=== PATIENT | male | born 2000 | race Two or more races ===

== ENCOUNTER 2020-02-27 19:36 | Emergency (ER) | payer MEDICAID, SELFPAY ==
[2020-02-27 19:40] VITALS: BP 130/69; PULSE 108; RESP 20; TEMP 36.8; O2SAT 95; BMI 22.2
--- NOTE | 2020-02-27 20:57 | ED_ITS ---
HPI - URI/Sore Throat General Chief Complaint: Upper Respiratory Symptoms Stated Complaint: cough,throat pain Time Seen by Provider: 02/27/20 20:27 Source: patient Mode of arrival: ambulatory Limitations: no limitations History of Present Illness HPI Narrative: 20-year-old male here with cough, runny nose since waking this morning. He tells me he lives with his girlfriend who is and he wants to get tested for COVID-19. He denies any fevers, chills, body aches. No shortness of breath. MD elicited complaint: cough and rhinorrhea Onset (ago): day(s) (1 day ) Consistency: constant Severity: mild Exacerbating factors: nothing Relieving factors: nothing Associated symptoms: denies other symptoms Related Data Previous Rx's Medication Instructions Recorded albuterol sulfate [ProAir HFA] 2 puff INHALATION Q4-6H PRN #6.7 g 02/27/20 Allergies Allergy/AdvReac Type Severity Reaction Status Date / Time No Known Allergies Allergy Verified 02/27/20 20:20 Review of Systems Constitutional: Constitutional: Reports no additional constitutional complaints, Denies body ache(s), Denies chills, Denies fever(s), Denies h eadache(s) and Denies weakness Eyes: Eyes: Denies no additional eye complaints ENT: Reports system reviewed and no additional complaints, except as documented, Denies dizziness, Denies headache(s), Reports nasal discharge and Denies sore throat Cardiovascular: Cardiovascular: Reports no additional cardiovascular complaints, Denies chest pain, Denies leg edema and Denies dyspnea Respiratory: Respiratory: Reports no additional respiratory complaints, Reports cough and Denies dyspnea Gastrointestinal: Gastrointestinal: Reports no additional gastrointestinal complaints, Denies abdominal pain, Denies diarrhea, Denies nausea and Denies vomiting Genitourinary: Genitourinary: Reports no additional male genitourinary complaints, Denies urinary frequency and Denies urinary urgency Musculoskeletal: Musculoskeletal: Reports no additional musculoskeletal complaints, Denies arthralgias, Denies joint swelling and Denies numbness Integumentary/Breasts: Skin/Breast: Reports system reviewed and no additional complaints, except as docu, Denies photosensitivity and Denies rash Neurologic: Reports system reviewed and no additional complaints, except as documented, Denies Abnormal speech present, Denies dizziness, Denies headache(s), Denies numbness and Denies weakness PMFSH Past Medical History Attestation statement: The following information was validated with the patient. Source: obtained from family and nursing notes reviewed Medical History No known health problems Social History Social History Smoking Status: Never smoker Use of substances other than those prescribed or required for medical reasons: No Advance Directives: No Advance Directives Information Provided: Yes Physical Exam Vital Signs: Vital Signs: Vital Signs Temp Pulse Resp BP Pulse Ox 02/27/20 19:40 98.2 F 108 H 20 130/69 95 Body Mass Index 22.2 Const: General: cooperative, healthy appearing, comfortable and no acute distress Orientation/consciousness: patient oriented x3 Limitations: no limitations HENMT: Head: Yes normal to inspection Ears: hearing grossly normal bilaterally General nose exam: Normal external nose present Face and sinus: Yes normal facial exam Mouth: Normal oral and palatal mucosa present Throat: Yes posterior oropharynx normal Eyes: General: appearance normal, both eyes and all related structures Pupils: Equal, round and reactive pupils present Neck: Neck: Yes normal visual inspection Chest: Chest palpation & inspection: normal inspection of the chest Resp: Effort & Inspection: normal respiratory effort Auscultation: clear to auscultation bilaterally Cardio: Rate: regular rate Rhythm: regular rhythm Peripheral pulses: Peripheral pulses 2+ throughout GI: Inspection: Yes normal to inspection Palpation (GI): Soft to palpation and nontender Auscultation: normal bowel sounds Back/Spine/Pelvis: Thoracic/Lumbar Spine: thoracic and lumbar spine normal to inspection Skin: General skin exam: no rashes or lesions noted Neuro: General: patient oriented x3, no focal motor deficits and normal sensation to monofilament Cranial nerves: Yes Equal, round and reactive pupils present Cognition (Neuro): normal cognition Speech: No Abnormal speech present Gait exam (Neuro): Normal gait present Motor exam (neuro): 5/5 motor strength present throughout Extrem: General: Yes normal to inspection Course Course Course Narrative: Likely viral syndrome. Patient well appearing, stable vital signs. Requesting COVID testing. This was sent. Reviewed worrisome signs and symptoms when to return to the emergency department. Comfortable with discharge home. Discharge Plan Discharge Clinical Impression: Acute viral syndrome Patient Disposition: Home, Self-Care Instructions: Viral Syndrome (ED) Additional Instructions: We have tested you today for covid 19. we will call you in 1-2 days with result. If positive quarentine for 14 days Prescriptions: New albuterol sulfate [ProAir HFA] 90 mcg/actuation HFA aerosol inhaler 2 puff inhalation Q4-6H PRN (Reason: shortness of breath or wheezing) Qty: 6.7 RF: 0 Interventions: ED Discharge Assessment Last Done: 02/27/20 20:49 Discharge Date/Time: 02/27/20 20:50
== END 2020-02-27 20:50 | disposition home or self-care (01) ==
PROVIDERS: Nurse Practitioner Family; Emergency Provider Emergency Medicine
DX: B34.9 Viral infection, unspecified (principal); Z20.828 Contact with and (suspected) exposure to other viral communicable diseases
CPT/HCPCS: 87635; 99283

== ENCOUNTER 2020-04-30 10:40 | Emergency (ER) | payer MEDICAID, SELFPAY ==
[2020-04-30 11:04] VITALS: BP 106/67; PULSE 71; RESP 17; TEMP 36.6; O2SAT 99; BMI 21.6
--- NOTE | 2020-04-30 11:34 | ED_ITS ---
HPI - Allergic Reaction General Chief complaint: Allergic Reaction Stated complaint: rash Time Seen by Provider: 04/30/20 11:26 Source: patient Mode of arrival: ambulatory History of Present Illness HPI narrative: 20-year-old male no significant past medical history presenting to the ED complaining of intermittent diffuse body rash x1 week, believed to be secondary to new washing detergent. Reports after scratching body area becomes red and pruritic. Denies other new exposures, new medications, recent travel, tick/insect bites, SOB, oral swelling, others with similar symptoms MD complaint: allergic reaction Onset (ago): day(s) Related Data Previous Rx's Medication Instructions Recorded albuterol sulfate [ProAir HFA] 2 puff INHALATION Q4-6H PRN #6.7 g 02/27/20 cetirizine [Zyrtec] 10 mg PO DAILY #14 cap 04/30/20 diphenhydramine HCl [Benadryl] 25 mg PO Q6H PRN #10 cap 04/30/20 famotidine [Pepcid] 20 mg PO DAILY PRN #10 tab 04/30/20 Allergies Allergy/AdvReac Type Severity Reaction Status Date / Time No Known Allergies Allergy Verified 02/27/20 20:20 Review of Systems Review of Systems: Constitutional: No Weight loss, No Fever, No Chills ENT/Mouth: No Ear Pain, No Nasal Congestion, No Hoarseness, No sore throat, No Rhinorrhea, No Swallowing Difficulty Cardiovascular: No Chest Pain, No SOB Respiratory: No Cough, No Wheezing Skin: No Skin Lesions, +6 rash PMFSH Past Medical History Attestation statement: The following information was validated with the patient. Medical History No known health problems Social History Social History (Reviewed 02/27/20 @ 21: by Ev Quezada NP) Smoking Status: Never smoker Advance Directives: No Advance Directives Information Provided: No Physical Exam Vital Signs: Vital Signs: Last Vital Signs Temp 98 F 04/30/20 11:04 Pulse 71 04/30/20 11:04 Resp 17 04/30/20 11:04 BP 106/67 04/30/20 11:04 Pulse Ox 99 04/30/20 11:04 Body Mass Index 21.6 Const: General: cooperative and healthy appearing Orientation/consciousness: patient oriented x3 Limitations: no limitations HENMT: Other: No mucous membrane involvement Head: Yes normal to inspection Ears: hearing grossly normal bilaterally General nose exam: Normal external nose present Face and sinus: Yes normal facial exam Mouth: Normal oral and palatal mucosa present, no drooling and no muffled voice Throat: Yes posterior oropharynx normal and Yes uvula midline Eyes: General: appearance normal, both eyes and all related structures EOM: EOMs intact bilaterally Neck: Neck: Yes normal visual inspection Resp: Effort & Inspection: normal respiratory effort, no stridor and not tachypneic Cardio: Rate: regular rate GI: Inspection: Yes normal to inspection Skin: Other: Small area of erythema noted to left forearm. No hives. No cellulitis/streaking or pustules. No palm/sole involvement Wounds: no wounds Neuro: General: patient oriented x3 Gait exam (Neuro): Normal gait present Extrem: General: Yes normal to inspection MDM - Allergic Reaction MDM Narrative Medical decision making narrative: Patient showed picture of hives on abdomen fr om earlier in the week. Just small area of red erythema to left forearm at this time, no other appreciable rash now. No intraoral involvement. No palm/sole involvement Discussed with patient to stop using new detergent/believed source, follow-up with bench worker apprentice, worrisome signs and symptoms and strict return precautions discussed he verbalized understanding feel safe for discharge home Discharge Plan Discharge Clinical Impression: Allergic reaction Patient Disposition: Home, Self-Care Instructions: Allergy Testing (ED) Additional Instructions: You should be taking Benadryl at night for your allergic reaction, makes you drowsy, do drive, drink alcohol, or operate machinery after taking During the day he should be taking Pepcid and Zyrtec as it is not acute drowsy Follow-up with an bench worker apprentice for allergy testing/dermatology If symptoms persist or worsen, he develops any lesions in her oral swelling, difficulty breathing return to the ED immediately Prescriptions: New diphenhydramine HCl [Benadryl] 25 mg capsule 25 mg PO Q6H PRN (Reason: allergic reaction) Qty: 10 RF: 0 Zyrtec 10 mg capsule 10 mg PO DAILY Qty: 14 RF: 0 famotidine [Pepcid] 20 mg tablet 20 mg PO DAILY PRN (Reason: allergic reaction) Qty: 10 RF: 0 No Action albuterol sulfate [ProAir HFA] 90 mcg/actuation HFA aerosol inhaler 2 puff inhalation Q4-6H PRN (Reason: shortness of breath or wheezing) Qty: 6.7 RF: 0 Referrals: Kendall Yañez DO [Physician] - 1 week [place], [facility] [Primary Care Provider] - 2 days
== END 2020-04-30 11:51 | disposition home or self-care (01) ==
PROVIDERS: Emergency Provider Emergency Medicine
DX: T55.1X1A Toxic effect of detergents, accidental (unintentional), initial encounter (principal); X58.XXXA Exposure to other specified factors, initial encounter; R21 Rash and other nonspecific skin eruption
CPT/HCPCS: 99283

== ENCOUNTER 2021-01-09 13:40 | Emergency (ER) | payer MEDICAID, SELFPAY ==
[2021-01-09 13:50] VITALS: BP 115/69; PULSE 95; RESP 16; TEMP 36.4; O2SAT 98; BMI 22.6
--- NOTE | 2021-01-09 15:58 | ED_ITS ---
HPI - General Adult General Chief complaint: Skin/Abscess/Foreign Body Stated complaint: lump on jaw Time Seen by Provider: 01/09/21 15:58 History of Present Illness HPI narrative: Patient complains of small mildly tender bumps that he noticed under the left side of his chin and the right side as well, he has had no fever no recent illness, no difficulty breathing or swallowing no other rash Related Data Previous Rx's Medication Instructions Recorded albuterol sulfate 90 mcg/actuation 2 puff INHALATION Q4-6H PRN #6.7 g 02/27/20 aerosol inhaler (ProAir HFA) cetirizine 10 mg capsule (Zyrtec) 10 mg PO DAILY #14 cap 04/30/20 diphenhydramine HCl 25 mg capsule 25 mg PO Q6H PRN #10 cap 04/30/20 (Benadryl) famotidine 20 mg tablet (Pepcid) 20 mg PO DAILY PRN #10 tab 04/30/20 amoxicillin 500 mg tablet 500 mg PO TID 7 Days #21 tab 01/09/21 Allergies Allergy/AdvReac Type Severity Reaction Status Date / Time No Known Allergies Allergy Verified 02/27/20 20:20 Review of Systems Review of Systems: Positive for small bumps under the mandible Negatives are no fever no chills no dizziness or weakness no headache no neck pain no sore throat no runny nose no cough no chest pain no shortness of breath no abdominal pain no vomiting no rash Yes all other systems are reviewed and are negative PMFSH Past Medical History Source: nursing notes reviewed Medical History No known health problems Social History Social History Advance Directives: No Advance Directives Information Provided: No Physical Exam Vital Signs: Vital Signs: Last Vital Signs Temp 97.6 F 01/09/21 13:50 Pulse 95 01/09/21 13:50 Resp 16 01/09/21 13:50 BP 115/69 01/09/21 13:50 Pulse Ox 98 01/09/21 13:50 Body Mass Index 22.6 General appearance no acute distress The ears are clear with normal tympanic membranes and canals The sinuses are not congested and nontender The pharynx is clear with no redness swelling or exudate The lungs are clear to auscultation bilateral Heart no murmur Skin no rash Course Course Course Narrative: Patient with bilateral lymphadenopathy cervical, otherwise asymptomatic but was concerned about infection and requested antibiotics so given a script for penicillin Discharge Plan Discharge Clinical Impression: Adenopathy, cervical Patient Disposition: Home, Self-Care Additional Instructions: Follow with primary doctor in 1-2 weeks if not better Return any time for any worse condition or any concerns Lymph nodes in the neck often appear in young people either from a virus or perhaps an early bacterial infection and usually go away by themselves within 2- 3 weeks Prescriptions: New amoxicillin 500 mg tablet 500 mg PO TID 7 Days Qty: 21 RF: 0 No Action albuterol sulfate [ProAir HFA] 90 mcg/actuation HFA aerosol inhaler 2 puff inhalation Q4-6H PRN (Reason: shortness of breath or wheezing) Qty: 6.7 RF: 0 diphenhydramine HCl [Benadryl] 25 mg capsule 25 mg PO Q6H PRN (Reason: allergic reaction) Qty: 10 RF: 0 Zyrtec 10 mg capsule 10 mg PO DAILY Qty: 14 RF: 0 famotidine [Pepcid] 20 mg tablet 20 mg PO DAILY PRN (Reason: allergic reaction) Qty: 10 RF: 0 Interventions: ED Discharge Assessment Last Done: 01/09/21 16:08 Discharge Date/Time: 01/09/21 16:11
== END 2021-01-09 16:11 | disposition home or self-care (01) ==
PROVIDERS: Emergency Provider Internal Medicine
DX: R59.9 Enlarged lymph nodes, unspecified (principal)
CPT/HCPCS: 99283

== ENCOUNTER 2021-08-09 13:49 | Emergency (ER) | payer MEDICAID, SELFPAY ==
--- NOTE | ~2021-08-09 | XR_ITS ---
EXAMINATION: XR CHEST CLINICAL INFORMATION: SOB COMPARISON: None TECHNIQUE: 2 views of the chest were obtained. FINDINGS: No significant abnormality is noted involving the heart, lungs, mediastinum, bony thorax or soft tissues. XR/XR chest 2V IMPRESSION: Unremarkable chest examination.
[2021-08-09 13:56] VITALS: BP 112/59; PULSE 109; RESP 18; TEMP 36.6; O2SAT 97; BMI 21.4
[2021-08-09 14:30] LABS: COVID-19 Test Negative (Negative); IDNOW Serial# 16C4AD1C
[2021-08-09 17:01] LABS: Hematocrit 41.7 % (42.0-52.0); Hemoglobin 14.3 g/dl (14.0-18.0); Mean Corpuscular HGB Conc 34.3 g/dl (31.0-36.0); Mean Corpuscular Hemoglobin 29.8 pg (27.0-33.0); Mean Corpuscular Volume 86.9 fL (80.0-98.0); Mean Platelet Volume 9.2 fL (9.4-12.4); Platelet Count 397 X10*3/uL (160-400); Red Cell Distribution Width 13.1 % (11.0-16.0); White Blood Count 13.4 X10*3/uL (4.8-10.8)
[2021-08-09 17:14] LABS: D Dimer High Sensitivity 228 NG/ML
[2021-08-09 17:15] LABS: Alanine Aminotransferase 19 U/L (0-40); Albumin Level 4.8 g/dL (3.5-5.0); Alkaline Phosphatase 84 U/L (39-117); Anion Gap 11 (12-20); Aspartate Amino Transferase 15 U/L (5-37); Bilirubin Total 0.4 mg/dL (0.0-1.0); Blood Urea Nitrogen 17 mg/dL (9-16); Calcium 9.8 mg/dL (8.4-10.2); Carbon Dioxide 23 mmol/L (22-29); Chloride 107 mmol/L (96-108); Estimated Glomerular Filt Rate > 60; Glucose Random 133 mg/dL (60-115); Potassium 4.4 mmol/L (3.3-5.1); Sodium 137 mmol/L (135-145); Total Protein 7.8 g/dL (6.5-8.0)
[2021-08-09 17:30] LABS: Atypical Lymph Absolute Manual 0.5 x10*3/uL; Atypical Lymphs Percent Manual 4 % (0-6); Band Neutrophils Percent 1 % (3-5); Large Platelet PRESENT; Lymphocytes Absolute Manual 0.3 X10*3/uL (1.2-4.9); Lymphocytes Percent Manual 2 % (20-40); Neutrophils Absolute Manual 12.6 X10*3/uL (2.0-8.3); Neutrophils Percent Manual 93 % (45-73); Platelet Estimate SLIGHTLY INCREASED (NORMAL); Platelet Morphology Comment NOTED; RBC Morphology NORMAL
--- NOTE | 2021-08-09 17:51 | ED_ITS ---
HPI - SOB/Dyspnea General Chief Complaint: Dyspnea Stated Complaint: SOB Time Seen by Provider: 08/09/21 17:12 Source: patient Mode of arrival: ambulatory Limitations: no limitations History of Present Illness HPI Narrative: 21-year-old male presenting to the ED with complaints of shortness of breath for the past 2 weeks reporting that he has never had COVID and his primary care provider recommended him to come here for further evaluation treatment for possible pulmonary embolism after he had outpatient labs done yesterday here at [facility] and apparently his PCP called him back in told him that his labs were abnormal and that he should come to the emergency department for a CT scan of his chest to rule out a pulmonary embolism. Although when I entered the patient's room he was very upset reporting that he is has been waiting since 2pm this afternoon and continues to report ?I do not trust any doctors you guys do not even care about patient's that is why have this A on my face for a tattoo because you guys do not actually care about people you make and wait hours even if there dying?. I apologized to the patient multiple times due to he waited approximately 2-3 hours in the waiting room and I explained to him that sometimes people do have to wait even when there sick because we do not have actual beds in the ER and that I had brought him in to Emergency [facility] care just to get him in sooner because there was no actual beds right now in the main ED and he was not impressed about this either way. He reported that he did not want to be here any longer that he did not want any additional labs or imaging and that he just wanted to ?fucking go home?. Therefore I told him that if he did not want to be here any longer than I cannot make him or force him to stay in the emergency department therefore he left against medical advice. Patient did not give me much information he was just very upset the entire time. MD elicited complaint: shortness of breath Onset (ago): week(s) (2) Timing: constant and progressively worsening Severity: moderate Related Data Previous Rx's Medication Instructions Recorded albuterol sulfate 90 mcg/actuation 2 puff INHALATION Q4-6H PRN #6.7 g 02/27/20 aerosol inhaler (ProAir HFA) cetirizine 10 mg capsule (Zyrtec) 10 mg PO DAILY #14 cap 04/30/20 diphenhydramine HCl 25 mg capsule 25 mg PO Q6H PRN #10 cap 04/30/20 (Benadryl) famotidine 20 mg tablet (Pepcid) 20 mg PO DAILY PRN #10 tab 04/30/20 amoxicillin 500 mg tablet 500 mg PO TID 7 Days #21 tab 01/09/21 Allergies Allergy/AdvReac Type Severity Reaction Status Date / Time No Known Allergies Allergy Verified 08/09/21 13:54 Review of Systems Review of Systems: Yes Other (Patient refused to answer any additional questions) [facility] Past Medical History Source: unable to obtain (Patient refused to answer any additional questions) Medical History No known health problems Social History Social History Advance Directives: No Advance Directives Information Provided: No Physical Exam Vital Signs: Vital Signs: Last Vital Signs Temp 97.9 F 08/09/21 13:56 Pulse 109 H 08/09/21 13:56 Resp 18 08/09/21 13:56 BP 112/59 L 08/09/21 13:56 Pulse Ox 97 08/09/21 13:56 BMI result Body Mass Index 21.4 vital signs have been reviewed as normal and appeared to be correct. Blood pressure 112/59 Heart rate 109. Respiration rate normal. Temperature normal. Oxygen saturation normal. Appearance: Alert. Oriented X3. No acute distress. Head: Normal external exam. Normocephalic. Atraumatic. Eyes: PERRLA. EOMI. Conjunctiva and sclera normal. Eyelids normal. ENT: Moist mucous membranes. Neck: Normal inspection. Neck supple. FROM. CVS: Normal heart rate and rhythm. Respiratory: No respiratory distress. Painless inspiration. Skin: Skin warm and dry. Normal skin color. Normal skin turgor. No r ashes/lesions/lacerations noted. Extremities: Extremities exhibit normal range of motion. Extremities nontender. Neuro: Oriented X 3. No motor deficit. No sensory deficit. Normal steady gait. Vascular: + radial pulses Normal cap refill. No cyanosis noted to upper extremity nails and lower extremity toes nails. Course Course Course Narrative: Patient left against medical advice he was alert and oriented x3. Not in any acute distress. Able to make his own medical decisions despite me explained to him that he should stay here for further evaluation treatment he was so upset he did not want to be here any longer I explained to him that he is always welcome back at any time and to follow-up with his primary care provider. MDM - SOB/Dyspnea Medical Records Attestation: I reviewed the patient's medical records. Lab Data Attestation: I reviewed the patient's lab results. Result diagrams: 08/09/21 16:53 08/09/21 16:53 Labs: Lab Results 08/09/21 08/09/21 08/09/21 Range/Units 13:58 16:53 16:53 WBC 13.4 H (4.8-10.8) X10*3/uL RBC 4.80 (4.60-5.80) X10*6/uL Hgb 14.3 (14.0-18.0) g/dl Hct 41.7 L (42.0-52.0) % MCV 86.9 (80.0-98.0) fL MCH 29.8 (27.0-33.0) pg MCHC 34.3 (31.0-36.0) g/dl RDW 13.1 (11.0-16.0) % Plt Count 397 (160-400) X10*3/uL MPV 9.2 L (9.4-12.4) fL Immature Gran % (Auto) Cancelled Neut % (Auto) Cancelled Lymph % (Auto) Cancelled Sebastian % (Auto) Cancelled Eos % (Auto) Cancelled Baso % (Auto) Cancelled Lymph # (Auto) Cancelled Sebastian # (Auto) Cancelled Eos # (Auto) Cancelled Baso # (Auto) Cancelled Abs Immat Gran (auto) Cancelled Absolute Neuts (auto) Cancelled Absolute Nucleated RBC 0.000 (0.0-0.012) X10*3/uL Nucleated RBC % (auto) 0.0 (0.0-0.2) /100WBC Neutrophils % (Manual) 93 H (45-73) % Band Neutrophils % 1 L (3-5) % Lymphocytes % (Manual) 2 L (20-40) % Atypical Lymphs % (Man) 4 (0-6) % Abs Neuts (Manual) 12.6 H (2.0-8.3) X10*3/uL Lymphocytes # (Manual) 0.3 L (1.2-4.9) X10*3/uL Atyp Lymphs # (Manual) 0.5 x10*3/uL Platelet Estimate SLIGHTLY INCREASED (NORMAL) Large Platelets PRESENT Plt Morphology Comment NOTED RBC Morphology NORMAL D-Dimer High Sensitivty 228 NG/ML Sodium (135-145) mmol/L Potassium (3.3-5.1) mmol/L Chloride (96-108) mmol/L Carbon Dioxide (22-29) mmol/L Anion Gap (12-20) BUN (9-16) mg/dL Creatinine (0.5-1.4) mg/dL Estim Creat Clear Calc Estimated GFR Random Glucose (60-115) mg/dL Calcium (8.4-10.2) mg/dL Total Bilirubin (0.0-1.0) mg/dL AST (5-37) U/L ALT (0-40) U/L Alkaline Phosphatase (39-117) U/L Total Protein (6.5-8.0) g/dL Albumin (3.5-5.0) g/dL COVID-19 (FIDEL) Negative (Negative) COVID-19 Clin Com See Note 08/09/21 Range/Units 16:53 WBC (4.8-10.8) X10*3/uL RBC (4.60-5.80) X10*6/uL Hgb (14.0-18.0) g/dl Hct (42.0-52.0) % MCV (80.0-98.0) fL MCH (27.0-33.0) pg MCHC (31.0-36.0) g/dl RDW (11.0-16.0) % Plt Count (160-400) X10*3/uL MPV (9.4-12.4) fL Immature Gran % (Auto) Neut % (Auto) Lymph % (Auto) Sebastian % (Auto) Eos % (Auto) Baso % (Auto) Lymph # (Auto) Sebastian # (Auto) Eos # (Auto) Baso # (Auto) Abs Immat Gran (auto) Absolute Neuts (auto) Absolute Nucleated RBC (0.0-0.012) X10*3/uL Nucleated RBC % (auto) (0.0-0.2) /100WBC Neutrophils % (Manual) (45-73) % Band Neutrophils % (3-5) % Lymphocytes % (Manual) (20-40) % Atypical Lymphs % (Man) (0-6) % Abs Neuts (Manual) (2.0-8.3) X10*3/uL Lymphocytes # (Manual) (1.2-4.9) X10*3/uL Atyp Lymphs # (Manual) x10*3/uL Platelet Estimate (NORMAL) Large Platelets Plt Morphology Comment RBC Morphology D-Dimer High Sensitivty NG/ML Sodium 137 (135-145) mmol/L Potassium 4.4 (3.3-5.1) mmol/L Chloride 107 (96-108) mmol/L Carbon Dioxide 23 (22-29) mmol/L Anion Gap 11 L (12-20) BUN 17 H (9-16) mg/dL Creatinine 0.83 (0.5-1.4) mg/dL Estim Creat Clear Calc 123.0 Estimated GFR > 60 Random Glucose 133 H (60-115) mg/dL Calcium 9.8 (8.4-10.2) mg/dL Total Bilirubin 0.4 (0.0-1.0) mg/dL AST 15 (5-37) U/L ALT 19 (0-40) U/L Alkaline Phosphatase 84 (39-117) U/L Total Protein 7.8 (6.5-8.0) g/dL Albumin 4.8 (3.5-5.0) g/dL COVID-19 (FIDEL) (Negative) COVID-19 Clin Com Imaging Data Chest x-ray: Attestation: I personally reviewed and interpreted this imaging study as follows: Radiologist's impression: FINDINGS: No significant abnormality is noted involving the heart, lungs, mediastinum, bony thorax or soft tissues. XR/XR chest 2V IMPRESSION: Unremarkable chest examination. Discharge Plan Discharge Clinical Impression: Shortness of breath, Left against medical advice Patient Disposition: Left Against Medical Advice Prescriptions: No Action albuterol sulfate [ProAir HFA] 90 mcg/actuation HFA aerosol inhaler 2 puff inhalation Q4-6H PRN (Reason: shortness of breath or wheezing) Qty: 6.7 0RF diphenhydramine HCl [Benadryl] 25 mg capsule 25 mg PO Q6H PRN (Reason: allergic reaction) Qty: 10 0RF Zyrtec 10 mg capsule 10 mg PO DAILY Qty: 14 0RF famotidine [Pepcid] 20 mg tablet 20 mg PO DAILY PRN (Reason: allergic reaction) Qty: 10 0RF amoxicillin 500 mg tablet 500 mg PO TID 7 Days Qty: 21 0RF
--- NOTE | 2021-08-09 18:17 | PC.NURSE ---
PT WAS VERY ANGRY WHEN THEY SAW THE PROVIDER STATED THEY WAITED A LONG TIME AND THEY WERE UNHAPPY AND THERE ALSO WAS OTHER PT THAT ARE STILL WAITING AND HE IS VERY ANGRY ALSO ANGRY BECAUSE HE STATES THE PHOTO SCANNED TO HIS LAB IS NOT HIM. PT LEFT AMA WITHOUT PAPER.
== END 2021-08-09 19:25 | disposition left against medical advice (07) ==
PROVIDERS: Emergency Provider Emergency Medicine Emergency Medical Services
DX: R06.02 Shortness of breath (principal); Z20.822 Contact with and (suspected) exposure to COVID-19
CPT/HCPCS: 36415; 71046; 80053; 85007; 85025; 85027; 85379; 87635; 99283

== ENCOUNTER 2021-10-05 18:36 | Emergency (ER) | payer MEDICAID, SELFPAY ==
--- NOTE | 2021-10-05 07:27 | ECG_ITS ---
Test Reason : CHEST PAIN Blood Pressure : / mmHG Vent. Rate : 091 BPM Atrial Rate : 091 BPM P-R Int : 148 ms QRS Dur : 086 ms QT Int : 326 ms P-R-T Axes : 023 059 046 degrees QTc Int : 400 ms Normal sinus rhythm Normal ECG When compared with ECG of 18-APR-2018 10:32, No significant change was found Referred By: Keenan Harding Electronically Signed By:YUN DASILVA MD
[2021-10-05 19:17] VITALS: BP 122/72; PULSE 94; RESP 18; TEMP 37.2; O2SAT 99; BMI 22.7
[2021-10-05 19:40] LABS: Basophils Absolute Auto 0.1 X10*3/uL (0.0-0.2); Eosinophils Absolute Auto 0.3 X10*3/uL (0.0-0.4); Eosinophils Percent Auto 3.1 % (0-4); Hematocrit 40.4 % (42.0-52.0); Hemoglobin 13.9 g/dl (14.0-18.0); Imm Gran Abs Auto 0.04 X10*3/uL (0.00-0.03); Imm Gran Pct Auto 0.4 % (0.0-0.4); Lymphocytes Absolute Auto 2.9 X10*3/uL (1.2-4.9); Lymphocytes Percent Auto 29.2 % (20-40); MANUAL DIFF FLAG NO; Mean Corpuscular HGB Conc 34.4 g/dl (31.0-36.0); Mean Corpuscular Hemoglobin 30.4 pg (27.0-33.0); Mean Corpuscular Volume 88.4 fL (80.0-98.0); Mean Platelet Volume 9.4 fL (9.4-12.4); Monocytes Absolute Auto 0.8 X10*3/uL (0.1-1.2); Monocytes Percent Auto 8.1 % (2-11); Neutrophils Absolute Auto 5.7 x10*3/uL (2.0-8.3); Neutrophils Percent Auto 58.2 % (45-73); Platelet Count 358 X10*3/uL (160-400); Red Blood Count 4.57 X10*6/uL (4.60-5.80); Red Cell Distribution Width 12.7 % (11.0-16.0); White Blood Count 9.8 X10*3/uL (4.8-10.8)
[2021-10-05 19:56] LABS: Alanine Aminotransferase 18 U/L (0-40); Albumin Level 4.4 g/dL (3.5-5.0); Alkaline Phosphatase 117 U/L (39-117); Anion Gap 13 (12-20); Aspartate Amino Transferase 16 U/L (5-37); Bilirubin Total 0.3 mg/dL (0.0-1.0); Blood Urea Nitrogen 13 mg/dL (9-16); Carbon Dioxide 26 mmol/L (22-29); Chloride 105 mmol/L (96-108); Creatinine Clr Calc Pharmacy 104.5; Estimated Glomerular Filt Rate > 60; Glucose Random 86 mg/dL (60-115); Sodium 140 mmol/L (135-145); Total Protein 7.4 g/dL (6.5-8.0)
[2021-10-05 20:00] LABS: Troponin-I High Sensitivity < 3.5 ng/L (<3.5-35.0)
--- NOTE | 2021-10-05 22:13 | PC.NURSE ---
Pt stated that he would rather leave the ER and deal with the pain I am going through. August RN encouraged the pt to stay, but he said he was going to leave anyway.
== END 2021-10-05 22:34 | disposition left against medical advice (07) ==
PROVIDERS: Emergency Provider Emergency Medicine
DX: R07.89 Other chest pain (principal); Z79.899 Other long term (current) drug therapy
CPT/HCPCS: 36415; 80053; 84484; 85025; 93005; 99281; 99283

== ENCOUNTER 2022-01-27 13:19 | Emergency (ER) | payer MEDICAID, SELFPAY ==
[2022-01-27 13:26] VITALS: BP 151/73; PULSE 99; RESP 18; TEMP 37.2; O2SAT 100; BMI 24.2
--- NOTE | 2022-01-27 13:29 | ECG_ITS ---
Test Reason : cp Blood Pressure : / mmHG Vent. Rate : 077 BPM Atrial Rate : 077 BPM P-R Int : 150 ms QRS Dur : 092 ms QT Int : 340 ms P-R-T Axes : 023 053 048 degrees QTc Int : 384 ms Normal sinus rhythm with sinus arrhythmia Normal ECG When compared with ECG of 05-OCT-2021 19:02, No significant change was found Referred By: Generic ED Physician Electronically Signed By:SAMEER WILD
[2022-01-27 13:55] LABS: MANUAL DIFF FLAG NO
[2022-01-27 13:56] LABS: Basophils Absolute Auto 0.1 X10*3/uL (0.0-0.2); Basophils Percent Auto 0.9 % (0-2); Eosinophils Absolute Auto 0.1 X10*3/uL (0.0-0.4); Eosinophils Percent Auto 1.6 % (0-4); Hematocrit 41.1 % (42.0-52.0); Hemoglobin 14.3 g/dl (14.0-18.0); Imm Gran Abs Auto 0.03 X10*3/uL (0.00-0.03); Imm Gran Pct Auto 0.4 % (0.0-0.4); Lymphocytes Absolute Auto 2.3 X10*3/uL (1.2-4.9); Lymphocytes Percent Auto 30.3 % (20-40); Mean Corpuscular HGB Conc 34.8 g/dl (31.0-36.0); Mean Corpuscular Volume 86.3 fL (80.0-98.0); Mean Platelet Volume 9.2 fL (9.4-12.4); Monocytes Absolute Auto 0.6 X10*3/uL (0.1-1.2); Monocytes Percent Auto 8.2 % (2-11); Neutrophils Absolute Auto 4.5 x10*3/uL (2.0-8.3); Neutrophils Percent Auto 58.6 % (45-73); Platelet Count 330 X10*3/uL (160-400); Red Blood Count 4.76 X10*6/uL (4.60-5.80); Red Cell Distribution Width 12.3 % (11.0-16.0); White Blood Count 7.7 X10*3/uL (4.8-10.8)
[2022-01-27 14:17] LABS: Alanine Aminotransferase 16 U/L (0-40); Albumin Level 4.4 g/dL (3.5-5.0); Alkaline Phosphatase 86 U/L (39-117); Anion Gap 14 (12-20); Aspartate Amino Transferase 16 U/L (5-37); Bilirubin Total 0.7 mg/dL (0.0-1.0); Blood Urea Nitrogen 19 mg/dL (9-16); Calcium 9.5 mg/dL (8.4-10.2); Carbon Dioxide 23 mmol/L (22-29); Chloride 105 mmol/L (96-108); Creatinine Clr Calc Pharmacy 106.8; Estimated Glomerular Filt Rate > 60; Glucose Random 135 mg/dL (60-115); Potassium 3.5 mmol/L (3.3-5.1); Sodium 138 mmol/L (135-145); Total Protein 7.2 g/dL (6.5-8.0)
[2022-01-27 14:20] LABS: Troponin-I High Sensitivity < 3.5 ng/L (<3.5-35.0)
--- NOTE | 2022-01-27 18:07 | PC.NURSE ---
Education provided to pt regarding triage priority and TAL. Pt educated tahat no test results would be disclosed in triage. Pt encouraged to remain in ED for provider evaluation. Pt refused repeat vs. Per pt fuck you for this. I'm gonna wait another 30 minutes and then i'll bounce.
== END 2022-01-27 19:55 | disposition left against medical advice (07) ==
PROVIDERS: Emergency Provider Emergency Medicine
DX: R07.9 Chest pain, unspecified (principal)
CPT/HCPCS: 36415; 80053; 84484; 85025; 93005; 99283

== ENCOUNTER 2022-02-19 10:17 | Emergency (ER) | payer MEDICAID, SELFPAY ==
[2022-02-19 10:56] VITALS: BP 102/63; PULSE 90; RESP 18; TEMP 36.4; O2SAT 97; BMI 22.6
[2022-02-19 11:21] LABS: MANUAL DIFF FLAG NO
[2022-02-19 11:23] LABS: Basophils Absolute Auto 0.1 X10*3/uL (0.0-0.2); Basophils Percent Auto 0.8 % (0-2); Eosinophils Absolute Auto 0.2 X10*3/uL (0.0-0.4); Eosinophils Percent Auto 2.9 % (0-4); Hematocrit 40.5 % (42.0-52.0); Imm Gran Abs Auto 0.03 X10*3/uL (0.00-0.03); Imm Gran Pct Auto 0.4 % (0.0-0.4); Lymphocytes Absolute Auto 1.4 X10*3/uL (1.2-4.9); Lymphocytes Percent Auto 17.5 % (20-40); Mean Corpuscular HGB Conc 34.6 g/dl (31.0-36.0); Mean Corpuscular Hemoglobin 30.1 pg (27.0-33.0); Mean Corpuscular Volume 87.1 fL (80.0-98.0); Mean Platelet Volume 9.4 fL (9.4-12.4); Monocytes Absolute Auto 0.7 X10*3/uL (0.1-1.2); Monocytes Percent Auto 8.4 % (2-11); Neutrophils Absolute Auto 5.5 x10*3/uL (2.0-8.3); Platelet Count 299 X10*3/uL (160-400); Red Blood Count 4.65 X10*6/uL (4.60-5.80); Red Cell Distribution Width 12.5 % (11.0-16.0); White Blood Count 7.8 X10*3/uL (4.8-10.8)
[2022-02-19 11:44] LABS: Alanine Aminotransferase 16 U/L (0-40); Albumin Level 4.5 g/dL (3.5-5.0); Alkaline Phosphatase 87 U/L (39-117); Anion Gap 14 (12-20); Aspartate Amino Transferase 17 U/L (5-37); Bilirubin Direct 0.2 mg/dL (0.0-0.5); Bilirubin Total 0.6 mg/dL (0.0-1.0); Blood Urea Nitrogen 11 mg/dL (9-16); Calcium 9.4 mg/dL (8.4-10.2); Carbon Dioxide 23 mmol/L (22-29); Chloride 106 mmol/L (96-108); Creatinine Clr Calc Pharmacy 128.9; Estimated Glomerular Filt Rate > 60; Glucose Random 85 mg/dL (60-115); Sodium 139 mmol/L (135-145); Total Protein 7.2 g/dL (6.5-8.0)
== END 2022-02-19 12:27 | disposition left against medical advice (07) ==
PROVIDERS: Emergency Provider Emergency Medicine
DX: R10.13 Epigastric pain (principal); R07.89 Other chest pain; Z79.899 Other long term (current) drug therapy
CPT/HCPCS: 36415; 80048; 80076; 85025; 99281; 99283

== ENCOUNTER 2022-02-19 22:32 | Emergency (ER) | payer MEDICAID, SELFPAY ==
[2022-02-19 23:13] VITALS: BP 152/78; PULSE 109; RESP 18; TEMP 36.6; O2SAT 95; BMI 22.6
== END 2022-02-20 01:22 | disposition left against medical advice (07) ==
PROVIDERS: Emergency Provider Emergency Medicine
DX: R10.9 Unspecified abdominal pain (principal); R51.9 Headache, unspecified
CPT/HCPCS: 99281

== ENCOUNTER 2022-02-20 10:48 | Emergency (ER) | payer MEDICAID, SELFPAY ==
--- NOTE | ~2022-02-20 | XR_ITS ---
EXAMINATION: XR CHEST CLINICAL INFORMATION: Chest pain COMPARISON: Previous chest x-ray August 2021 TECHNIQUE: 2 views of the chest were obtained. FINDINGS: No significant abnormality is noted involving the heart, lungs, mediastinum, bony thorax or soft tissues. XR/XR chest 2V IMPRESSION: Unremarkable examination.
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
--- NOTE | ~2022-02-20 | XR_ITS ---
EXAMINATION: XR LUMBOSACRAL SPINE CLINICAL INFORMATION: Low back pain COMPARISON: None TECHNIQUE: Three views of the lumbosacral spine. FINDINGS: The vertebral bodies and posterior elements are normal. The disc spaces are preserved and the vertebral alignment is normal. The paraspinal soft tissues are normal. XR/XR lumbar spine 2-3V IMPRESSION: Unremarkable examination.
[2022-02-20 11:02] VITALS: BP 113/89; PULSE 112; RESP 18; TEMP 37.2; O2SAT 97; BMI 23.3
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
== END 2022-02-20 14:39 | disposition home or self-care (01) ==
PROVIDERS: Emergency Provider Student in an Organized Health Care Education/Training Program
DX: S06.0X0A Concussion without loss of consciousness, initial encounter (principal); S39.012A Strain of muscle, fascia and tendon of lower back, initial encounter; Y04.2XXA Assault by strike against or bumped into by another person, initial encounter; R07.81 Pleurodynia; L73.9 Follicular disorder, unspecified; Y93.89 Activity, other specified; Y92.9 Unspecified place or not applicable; Y99.9 Unspecified external cause status
CPT/HCPCS: 70450; 71046; 72100; 99283; 99284

== ENCOUNTER 2022-03-03 10:52 | Emergency (ER) | payer MEDICAID, SELFPAY ==
[2022-03-03 11:56] VITALS: BP 131/87; PULSE 96; RESP 16; TEMP 36.6; O2SAT 99; BMI 23.3
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
[2022-03-03 14:11] LABS: CT PCR NOT DETECTED (Not Detect.); NG PCR NOT DETECTED (Not Detect.)
== END 2022-03-03 12:33 | disposition home or self-care (01) ==
PROVIDERS: Emergency Provider Emergency Medicine
DX: R51.9 Headache, unspecified (principal); Z20.2 Contact with and (suspected) exposure to infections with a predominantly sexual mode of transmission
CPT/HCPCS: 87491; 87591; 99282; 99283

== ENCOUNTER 2022-08-17 17:00 | Emergency (ER) | payer MEDICAID, SELFPAY ==
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
[2022-08-17 17:07] VITALS: BP 166/94; PULSE 110; O2SAT 98
[2022-08-17 17:22] VITALS: BP 125/83; PULSE 79; RESP 18; TEMP 36.9; O2SAT 97; BMI 25.3
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
[2022-08-17] MEDS: Ibuprofen 600 MG TABLET PO (21:50)
== END 2022-08-17 21:52 | disposition home or self-care (01) ==
PROVIDERS: Emergency Provider Emergency Medicine
DX: S01.01XA Laceration without foreign body of scalp, initial encounter (principal); R51.9 Headache, unspecified; M54.2 Cervicalgia; Y04.8XXA Assault by other bodily force, initial encounter; Y93.9 Activity, unspecified; Y92.9 Unspecified place or not applicable; Y99.9 Unspecified external cause status
CPT/HCPCS: 12032; 70450; 72125; 99283; 99284

== ENCOUNTER 2022-08-24 14:35 | Emergency (ER) | payer MEDICAID, SELFPAY ==
[2022-08-24 15:09] VITALS: BP 104/74; PULSE 66; RESP 16; TEMP 36.9; O2SAT 99; BMI 25.7
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
== END 2022-08-24 15:15 | disposition home or self-care (01) ==
PROVIDERS: Emergency Provider Emergency Medicine
DX: Z48.02 Encounter for removal of sutures (principal)
CPT/HCPCS: 99282

== ENCOUNTER 2023-11-20 20:22 | Emergency (ER) | payer SELFPAY ==
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
[2023-11-20 20:29] VITALS: BP 121/62; PULSE 88; RESP 16; TEMP 36.6; O2SAT 99
[2023-11-20 20:32] VITALS: PULSE 94; O2SAT 99; BMI 24.7
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
== END 2023-11-20 22:34 | disposition left against medical advice (07) ==
PROVIDERS: Emergency Provider Emergency Medicine
DX: S62.397A Other fracture of fifth metacarpal bone, left hand, initial encounter for closed fracture (principal); W22.09XA Striking against other stationary object, initial encounter; Y93.9 Activity, unspecified; Y92.9 Unspecified place or not applicable; Y99.9 Unspecified external cause status
CPT/HCPCS: 73130; 99281; 99283; 99284

== ENCOUNTER 2023-11-21 07:48 | Emergency (ER) | payer SELFPAY ==
[2023-11-21 07:50] VITALS: BP 112/61; PULSE 77; RESP 16; TEMP 36; O2SAT 97; BMI 24.8
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
[2023-11-21 08:10] VITALS: RESP 16
--- NOTE | 2023-11-21 08:53 | ED.EXTPRO ---
HPI - Extremity Problem General Chief complaint: Extremity Injury, Upper Stated complaint: lt hand inj Time Seen by Provider: 11/21/23 08:52 Source: patient and RN notes reviewed Mode of arrival: ambulatory Limitations: no limitations History of Present Illness ED Provider: Brittany Adams PA-C HPI Narrative: This is a 23-year-old male, with no medical problems, who presents emergency department with complaints of left hand pain and swelling. Patient reports yesterday he was upset and punched a wall with his left hand. He has had pain and swelling since. He checked into the emergency room yesterday where he had an x-ray which revealed a fracture however he was unable to stay to complete his treatment as he had to put his children to bed. He denies any new injury or trauma. Denies taking any medications to treat his current symptoms. He states he previously fractured these bones in the past and was seen by Orthopedics. No other complaints or concerns at this time. MD Complaint: extremity pain and extremity swelling Onset (ago): day(s) Pain Consistency: constant Location: left and upper extremity Quality: aching Radiation: none Relieving factors: immobilization Exacerbating factors: palpation Associated symptoms: denies other symptoms Related Data Previous Rx's ?Medication ?Instructions ?Recorded albuterol sulfate 90 mcg/actuation 2 puff inhalation Q4-6H PRN 02/27/20 aerosol inhaler (ProAir HFA) shortness of breath or wheezing #6.7 grams cetirizine 10 mg capsule (Zyrtec) 10 mg PO DAILY #14 caps 04/30/20 diphenhydramine HCl 25 mg capsule 25 mg PO Q6H PRN allergic reaction 04/30/20 (Benadryl) #10 caps famotidine 20 mg tablet (Pepcid) 20 mg PO DAILY PRN allergic 04/30/20 reaction #10 tabs amoxicillin 500 mg tablet 500 mg PO TID 7 days #21 tabs 01/09/21 cyclobenzaprine 10 mg tablet 10 mg PO Q8H #14 tabs 02/20/22 ibuprofen 800 mg tablet 800 mg PO Q8H PRN pain #14 tabs 02/20/22 mupirocin 2 % topical ointment 1 appl topical TID Folliculitis 02/20/22 #22 grams acetaminophen 500 mg capsule 500 mg PO Q6H PRN fever or pain 08/17/22 #14 caps acetaminophen 650 mg 650 mg PO Q8H PRN pain #30 tabs 11/21/23 tablet,extended release (Tylenol 8 Hour) ibuprofen 600 mg tablet 600 mg PO Q6H PRN pain #30 tabs 11/21/23 Allergies Allergy/AdvReac Type Severity Reaction Status Date / Time No Known Allergies Allergy Verified 11/21/23 07:52 Review of Systems Review of Systems: Yes all other systems are reviewed and are negative Constitutional: Constitutional: Reports as per [facility] Past Medical History Medical History No known health problems Social History Social History Advance Directives: No Advance Directives Information Provided: Yes Physical Exam Vital Signs: Vital Signs: Last Vital Signs Temp 96.8 F 11/21/23 07:50 Pulse 77 11/21/23 07:50 Resp 16 11/21/23 08:10 BP 112/61 11/21/23 07:50 Pulse Ox 97 11/21/23 07:50 O2 Del Method Room Air 11/21/23 07:50 BMI result Body Mass Index 24.8 Const: General: cooperative, comfortable and no acute distress Orientation/consciousness: patient oriented x3 Limitations: no limitations HEENT: Head: Yes normal to inspection, Yes normocephalic and Yes atraumatic Ears: hearing grossly normal bilaterally General nose exam: Normal external nose present Face and sinus: Yes normal facial exam Mouth: Normal oral and palatal mucosa present, oropharynx normal and moist mucous membranes Throat: Yes posterior oropharynx normal Eyes: General: appearance normal, both eyes and all related structures Eyelids: Yes eyelids normal Conjunctivae: conjunctivae normal Sclerae: sclerae normal Pupils: Equal, round and reactive pupils present EOM: EOMs intact bilaterally Neck: Neck: Yes normal visual inspection, Yes full ROM and Yes no lymphadenopathy Lymphatic: no lymphadenopathy noted Chest: Chest palpation & inspection: normal inspection of the chest Resp: Effort & Inspection: normal respiratory effort and able to speak in complete sentences Auscultation: clear to auscultation bilaterally, no crackles, no rales, no rhonchi and no wheezes Cardio: Rate: regular rate Rhythm: regular rhythm Heart sounds: S1 normal heart sound present and S2 normal heart sound present GI: Inspection: Yes normal to inspection Skin: General skin exam: no rashes or lesions noted Trauma: no lacerations or abrasions Wounds: no wounds Neuro: General: patient oriented x3 and moves all extremities Cranial nerves: Yes Equal, round and reactive pupils present Extrem: Other: Left hand, dorsal aspect there is moderate edema noted overlying the 4th and 5th metacarpal bones with exquisite tenderness throughout. Able to make a fist however decreased range of motion of the 4th and 5th digit secondary to pain. Strong radial pulse. Distal sensation circulation intact. Capillary refill less than 2 seconds. Strong radial pulse. Able to oppose his thumb to all digits General: Yes normal to inspection Right upper extremity: normal to inspection Right lower extremity: normal to inspection Left lower extremity: normal to inspection Medications Administered Discontinued Medications Generic Name Dose Route Start Last Admin Trade Name Freq PRN Reason Stop Dose Admin Acetaminophen 975 mg 11/21/23 09:00 11/21/23 09:04 Acetaminophen 325 Mg Tablet PO 11/21/23 09:01 975 mg ONCE ONE Administration Medical Decision Making Medical Decision Making [facility] Narrative: This is a 23-year-old male who presents emergency department with complaints of left hand pain status post punching a wall yesterday. On arrival, vital signs within normal limits. Differential diagnoses include fracture, contusion, sprain, strain. X-rays that were performed yesterday reveal a minimally displaced acute fracture through the distal aspect of the 5th metacarpal bone. There has also an area of lucency through the distal aspect of the 4th metacarpal bone. He has exquisite tenderness throughout these areas, consistent with fracture. Patient was placed in an ulnar gutter splint and given orthopedic number to follow-up. Patient will call on Thursday to make an appointment. Given strict return precautions. He understands and agrees with plan. Patient stable for discharge. Differential Diagnosis Differential Diagnoses: The differential diagnosis associated with the presentation includes See above Lab Data [facility] Lab Attestation statement: I reviewed the patient's lab results. Independent Interpretation I performed an independent interpretation of an: Plain X-Ray Interpretation: I reviewed the x-ray and agree with the radiology report Radiology Impression Discussion of test interpretation with radiology: I have reviewed the radiologist's reading. Radiologist Impression: XR/XR hand LT min 3V FINDINGS / IMPRESSION: There is a minimally displaced, acute fracture through the distal aspect of the fifth metacarpal bone. There is an additional area of lucency through the distal aspect of the fourth metacarpal bone. A nondisplaced fracture cannot be excluded. The overlying soft tissue is swollen. No radiopaque foreign object. Dictated By: Nahid Ribeiro Jr DO Procedures Orthopedic Splinting/Casting Injury #1: Side: left Upper Extremity Injury Location: wrist and hand Upper Extremity Immobilizer: ulnar gutter Discharge Plan Discharge Clinical Impression: Fracture of fifth metacarpal bone, Fracture of fourth metacarpal bone Instructions: Hand Fracture (ED), Boxer Fracture (ED) Additional Instructions: You were seen in the emergency department after injuring her left hand. You have a displaced fracture in your metacarpal bone. There has also a question of a fracture in your 4th metacarpal bone. We placed your hand in a splint. Please keep this on until you were seen by Orthopedics. Do not get splint wet. You may return if you feel as though your splint is too tight, symptoms of this would be severe pain in your right hand and wrist, decreased sensation in your fingers, numbness or tingling into your fingers. Alternate between ibuprofen and Tylenol as needed for pain. Keep hand elevated to reduce the swelling, as this will also help with pain. If any new or worsening symptoms occur including but not limited to the above symptoms, please return for re-evaluation. Call Orthopedics on Thursday to make an appointment. Prescriptions: New ibuprofen 600 mg tablet 600 mg PO Q6H PRN (Reason: pain) Qty: 30 0RF acetaminophen [Tylenol 8 Hour] 650 mg tablet extended release 650 mg PO Q8H PRN (Reason: pain) Qty: 30 0RF No Action albuterol sulfate [ProAir HFA] 90 mcg/actuation HFA aerosol inhaler 2 puff inhalation Q4-6H PRN (Reason: shortness of breath or wheezing) Qty: 6.7 0RF diphenhydramine HCl [Benadryl] 25 mg capsule 25 mg PO Q6H PRN (Reason: allergic reaction) Qty: 10 0RF Zyrtec 10 mg capsule 10 mg PO DAILY Qty: 14 0RF famotidine [Pepcid] 20 mg tablet 20 mg PO DAILY PRN (Reason: allergic reaction) Qty: 10 0RF amoxicillin 500 mg tablet 500 mg PO TID 7 Days Qty: 21 0RF mupirocin 2 % ointment 1 appl topical TID Qty: 22 0RF cyclobenzaprine 10 mg tablet 10 mg PO Q8H Qty: 14 0RF ibuprofen 800 mg tablet 800 mg PO Q8H PRN (Reason: pain) Qty: 14 0RF acetaminophen 500 mg capsule 500 mg PO Q6H PRN (Reason: fever or pain) Qty: 14 0RF Referrals: [facility] Orth[facility] Surgeons [Provider Group] Print Language: Japanese
[2023-11-21] MEDS: Acetaminophen 325 MG TABLET 975 MG PO (09:04)
[2023-11-21 09:41] VITALS: BP 114/74; PULSE 65; RESP 16; TEMP 36.6; O2SAT 97
[2023-11-21 09:47] VITALS: BP 114/74; PULSE 65; RESP 16; TEMP 36.6; O2SAT 97
== END 2023-11-21 09:49 | disposition home or self-care (01) ==
PROVIDERS: Emergency Provider Emergency Medicine Emergency Medical Services
DX: S62.307A Unspecified fracture of fifth metacarpal bone, left hand, initial encounter for closed fracture (principal); S62.305A Unspecified fracture of fourth metacarpal bone, left hand, initial encounter for closed fracture; W22.09XA Striking against other stationary object, initial encounter; Y93.89 Activity, other specified; Y92.9 Unspecified place or not applicable; Y99.9 Unspecified external cause status
CPT/HCPCS: 29125; 99283; 99284

== ENCOUNTER 2023-11-24 08:30 | Outpatient (REF) | payer SELFPAY | END 2023-11-24 08:31 | disposition home or self-care (01) | LOC: HO.HOSX 08:30 | PROVIDERS: Visit Provider Orthopaedic Surgery | DX: Z13.89 Encounter for screening for other disorder (principal) ==

== ENCOUNTER 2023-11-25 08:57 | Outpatient (AMB) | payer SELFPAY ==
--- NOTE | 2023-11-25 09:06 | A.OFFVIS_ITS ---
Vital Signs 11/25/23 09:10 Height 5 ft 7 in Weight 160 lb BMI 25.1 Handedness Right Intake Visit Reasons: FC fourth and fifth metacarpal bone Intake Note: Esteban is a 23 year old right hand dominant male who present today for a Fracture of fifth metacarpal bone of his left hand s/p DOI: 11/20/23. Patient reports he punched a wall with his left hand. He expresses immediate pain and swelling following this injury. He states last night and today he is having extreme pain in the entire hand. He has swelling and bruising on the 3rd, 4th, and 5th digits of his left hand. He has been out of work since this injury. He was seen in [facility] ED on 11/21/23 where he was placed into a glutter splint and prescribed him Tylenol until his follow up with orthopedics. He expresses no relief with Tylenol. Allergies No Known Allergies Allergy (Verified 11/25/23 09:13) HPI HPI FC fourth and fifth metacarpal bone: Details: Esteban is a 23 year old right hand dominant man who presents for a left hand fracture. He punched a wall on 11/20/23, fracturing his left hand. He was seen in the ED on 11/21/23 and placed in an ulnar gutter splint. He has a hx of previous fractures to his 5th metacarpal in 2019, which was managed conservatively. He complains of pain, swelling, and bruising in his hand, particularly his middle, ring, and small fingers. He says his pain is severe and worse with motion or use of his hand. He says this pain has been preventing him from sleeping at times. He has been taking the max dosage of Tylenol, with limited relief. He says he had some occasional pain in his hand with use prior to this recent fracture. He says his bone was reduced in the ED in 2019, and this was done incorrectly so as a result he was not a good surgical candidate and his hand healed with poor alignment. 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 He says he tried to return to work since his injury but he was sent home as they had nothing for him to perform. He also has children at home, which he says will be difficult to care for with a weight limit. 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 Review of Systems Const All systems reviewed & are unremarkable except as noted in HPI and below Physical Exam Vital Signs: BMI result Body Mass Index 25.1 Const General: cooperative, healthy appearing and no acute distress Orientation/consciousness: patient oriented x3 HEENT Head: Yes normocephalic and Yes atraumatic Eyes EOM: EOMs intact bilaterally Resp Effort & Inspection: normal respiratory effort and able to speak in complete sentences Cardio Jugular venous distension: no JVD Skin General skin exam: turgor normal Rashes: no rashes Neuro General: patient oriented x3 Extrem Other: Evaluation of Left Upper Extremity: The patient is alert, oriented, and in no acute distress Neuro: Median, Ulnar, Radial nerves motor and sensory intact and sensation is normal to the tips of all digits Vascular: Cap refill brisk ROM: No rotational mal-alignment Very restriced ROM at this time due to pain Patient is able to fully flex and extend thumb, index finger, middle finger Unable to make a full closed fist at this time Skin: No lacerations or abrasions. Pain: Pain to very gentle palpation over the fourth and fifth metacarpals, as well as the ring and small fingers General: Swelling & ecchymosis about the 3rd-5th metacarpals No evidence of infection Radiographs: 3 views of the left hand were taken and viewed by me today in clinic. They show a 5th metacarpal [ ] fracture with [ ]. Psych Appearance: grossly normal Affect: normal affect Attitude: cooperative Assessment & Plan Assessment & Plan (1) Closed nondisplaced fracture of fifth metacarpal bone of left hand: Code(s): S62.307A - Unspecified fracture of fifth metacarpal bone, left hand, initial encounter for closed fracture Category: Medical Plan Assessment & Plan: 1. Left 5th metacarpal [ ] fracture, non-displaced From a punching injury, DOI: 11/20/23 I educated him about this condition I discussed operative and non-operative treatment options We will manage this conservatively at this time Due to his swelling, he was placed in a velcro wrist splint, to be worn like a cast except for showering for the next week L ring and small fingers were also adriel-taped for additional stability while allowing motion. 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 Please note that greater than 30 minutes was spent with this patient going over the history, evaluating the patient and radiographs, formulating possible treatment options, discussing them with the patient, and documenting the visit. Scribed for DAVID Roach by Henrry Justin, biomedical engineering technician, on 11/25/23 at 9:30 AM, EST. Orders: Orders XR hand LT min 3V Today M79.642 - Pain in left hand Medications: Discontinued cetirizine (Zyrtec) Discontinued Reason: Patient no longer taking 10 mg PO DAILY 14 caps 0RF diphenhydramine HCl (Benadryl) Discontinued Reason: Patient no longer taking 25 mg PO Q6H PRN 10 caps 0RF allergic reaction famotidine (Pepcid) Discontinued Reason: Patient no longer taking 20 mg PO DAILY PRN 10 tabs 0RF allergic reaction amoxicillin Discontinued Reason: Patient no longer taking 500 mg PO TID 7 days 21 tabs 0RF cyclobenzaprine Discontinued Reason: Patient no longer taking 10 mg PO Q8H 14 tabs 0RF mupirocin 2% Discontinued Reason: Stopped on Transfer 1 appl topical TID 22 grams 0RF Folliculitis ibuprofen Discontinued Reason: Patient no longer taking 800 mg PO Q8H PRN 14 tabs 0RF pain acetaminophen Discontinued Reason: Patient no longer taking 500 mg PO Q6H PRN 14 caps 0RF fever or pain Scribe Plan - Not visible on output: Scribed for Delphine Sanchez MD by Henrry Justin, biomedical engineering technician, on [ ] at [ ], EST. Coding Level of Care Code New Pt Level 4 (04722) Diagnoses Closed nondisplaced fracture of fifth metacarpal bone of left hand S62.307A
[2023-11-25 09:10] VITALS: BMI 25.1
== END 2023-11-25 10:11 | disposition home or self-care (01) ==
DX: S62.307A Unspecified fracture of fifth metacarpal bone, left hand, initial encounter for closed fracture (principal)
CPT/HCPCS: 99204

== ENCOUNTER 2023-11-25 10:18 | Outpatient (REF) | payer MEDICAID, SELFPAY ==
--- NOTE | ~2023-11-25 | XR_ITS ---
EXAMINATION: XR HAND, LEFT CLINICAL INFORMATION: Left hand pain. COMPARISON: 11/20/2023 TECHNIQUE: PA, lateral, and oblique views of the left hand. FINDINGS: Unchanged apex dorsal/medial angulation at the fifth metacarpal shaft fracture. There has been progressive osseous remodeling at the fracture site. Volar bridging bone is noted. Much of the fracture line remains apparent dorsally. Soft tissues are swollen. No new fractures. Joints appear well preserved. XR/XR hand LT min 3V IMPRESSION: Progressive healing of the fifth metacarpal shaft fracture with unchanged angulation.
== END 2023-11-25 10:19 | disposition home or self-care (01) ==
LOC: HO.HOSX 10:18
DX: S62.307A Unspecified fracture of fifth metacarpal bone, left hand, initial encounter for closed fracture (principal)
CPT/HCPCS: 73130; 99202

== ENCOUNTER 2023-12-02 09:43 | Outpatient (REF) | payer SELFPAY | END 2023-12-02 09:44 | disposition home or self-care (01) | LOC: HO.HOSX 09:43 | DX: Z13.89 Encounter for screening for other disorder (principal) ==

== ENCOUNTER 2023-12-11 06:41 | Outpatient (REF) | payer MEDICAID, SELFPAY ==
--- NOTE | ~2023-12-11 | XR_ITS ---
EXAMINATION: XR HAND, LEFT CLINICAL INFORMATION: Left hand pain. COMPARISON: 11/25/2023 TECHNIQUE: PA, lateral, and oblique views of the left hand. FINDINGS: Unchanged apex dorsal/medial angulation at the fifth metacarpal shaft fracture. Osseous remodeling at the fracture site is again noted. Volar bridging bone is suspected. Much of the fracture line remains apparent dorsally. Soft tissues are swollen. No new fractures. Joints appear well preserved. XR/XR hand LT min 3V IMPRESSION: Partially healed fifth metacarpal shaft fracture with unchanged angulation.
== END 2023-12-11 06:42 | disposition home or self-care (01) ==
LOC: HO.HOSX 06:41
DX: S62.307A Unspecified fracture of fifth metacarpal bone, left hand, initial encounter for closed fracture (principal); Y92.9 Unspecified place or not applicable; Y93.9 Activity, unspecified; Y99.9 Unspecified external cause status
CPT/HCPCS: 73130; 99212

== ENCOUNTER 2023-12-11 09:24 | Outpatient (AMB) | payer MEDICAID, SELFPAY ==
--- NOTE | 2023-12-11 09:30 | MHC.OFFVIS ---
Intake Visit Reasons: OV-fourth and fifth metacarpal bone-w/xray Intake Note: This is a 23 year old male who presents for a 4th and 5th metacarpal bone injury. X rays were updated in the office today. He reports continued pain that has slightly improved. He is still wearing the brace and reports some numbness and tingling when he takes it off for prolonged periods. Allergies No Known Allergies Allergy (Verified 12/11/23 09:40) Medication List - Last Reconciled 12/11/23 by Jessica Hayden RN acetaminophen ER (Tylenol 8 Hour) 650 mg PO Q8H PRN albuterol sulfate 90 mcg/actuation (ProAir HFA) 2 puffs inhalation Q4-6H PRN ibuprofen 600 mg PO Q6H PRN HPI HPI OV-fourth and fifth metacarpal bone-w/xray: Details: Patient is a 23-year-old male who presents for follow-up evaluation of 5th metacarpal neck fracture, date of injury 11/20/2023. Today, the patient reports that he is feeling better since previous evaluation, but he does report that he is still experiencing pain at the fracture site. The patient reports that he is essentially back to his baseline range of motion, but reports that this has been diminished since previous injury to the same bone in 2019. Patient reports that he has been adriel taping regularly since previous evaluation. The patient reports that, when he is out of the Velcro wrist splint provided to him at last visit, he begins to experience more discomfort, initially described as numbness and tingling but later described as just discomfort and pain. The patient reports that he has been occasionally compliant with 2 lb weight limit, and states that he has continued smoking marijuana since previous evaluation. The patient inquires if he will need to go in a cast, or if he can remain adriel taping with a Velcro wrist splint. The patient also inquires about the process of getting [place] paperwork. No other acute complaints or concerns at this time. 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 Neuro: Median, ulnar, radial nerves motor and sensory intact and sensation is normal to the tips of all digits. Vascular: Cap refill brisk Pain: Patient reports mild to moderate tenderness to palpation over the 5th metacarpal neck, no other tenderness to palpation noted Range of motion is nonpainful. ROM: Patient is able to make a closed fist without difficulty Upon extension, the patient states that he can not fully extend his small finger, but that this is his baseline since previous injury in 2019 Skin: No lacerations or abrasions. Mild edema over the dorsal aspect of the hand at the level of the 5th metacarpal neck noted General: No erythema, or evidence of infection. Psych: Appears grossly normal Affect normal Attitude cooperative Psych Appearance: grossly normal Affect: normal affect Attitude: cooperative Results Reviewed Results Reviewed: X-rays obtained in the office today and independently reviewed by me, Bruce Bobo PA-C, demonstrate nondisplaced fracture of the 5th metacarpal neck in the area of old deformity, with evidence of early interval bony healing. Assessment & Plan Assessment & Plan (1) Closed nondisplaced fracture of fifth metacarpal bone of left hand: Code(s): S62.307A - Unspecified fracture of fifth metacarpal bone, left hand, initial encounter for closed fracture Category: Medical Plan 1. Fifth metacarpal neck fracture, nondisplaced Date of injury 11/20/2023 Patient is recovering well from his injury Patient is educated about the typical recovery course Patient is informed that the fracture has not moved at all, and is starting to show evidence of early healing on radiographs Therefore, he does not need to be placed in a cast, and can to continue use of velcro wrist splint with daytime activities and adriel taping for the next 4 weeks Patient is once again advised to adhere to a strict 2 lb weight limit in his left hand, which patient states he will try but will likely not be able to adhere to Patient is also once again advised on the risks of any kind of smoking with a fracture, including but not limited to malunion, nonunion, or delayed healing Patient states that he is aware of this, but states that it is unlikely that he will stop smoking Patient is also informed that he will need to get the [facility] paperwork from his job, and then he can either send it to us or bring it to us, and we will gladly get it filled out, signed, and returned to him Patient is amenable to this plan Patient will follow-up in 4 weeks with repeat x-rays for reassessment of fracture, sooner with any acute concerns Orders: Orders XR hand LT min 3V Today M79.642 - Pain in left hand Coding Level of Care Code Global (17881) Diagnoses Closed nondisplaced fracture of fifth metacarpal bone of left hand S62.307A
== END 2023-12-11 09:59 | disposition home or self-care (01) ==
DX: S62.307A Unspecified fracture of fifth metacarpal bone, left hand, initial encounter for closed fracture (principal)
CPT/HCPCS: 99213

== ENCOUNTER 2024-01-08 15:11 | Outpatient (REF) | payer MEDICAID, SELFPAY | END 2024-01-08 15:12 | disposition home or self-care (01) | LOC: HO.HOSX 15:11 | DX: Z13.89 Encounter for screening for other disorder (principal) ==